=== PATIENT | female | born 1950 | race Caucasian/White ===

== ENCOUNTER → 2016-11-21 | Outpatient (CLI) | payer OTHER ==
[~2016-11-21] MED LIST: ACET-24 PO; ASPEC325 PO; ASPI81TA28 PO; ATOR10TA88 PO; AVP150 PO; CARV3.122 PO; CHOL100010 PO; CIPR1TAB11 PO; CYAN10005 PO; DEXL30CA5 PO; ESCI1TAB9 PO; FRRG PO; GLIM2TAB2 PO; INHALER INH; LEVO88TA3 PO; MISCCAP80 PO; NCYSR50 PO; NXM/40 PO; RXC5 PO; SITA50TA5 PO; SYN100 PO; TRIA75TA PO
[2016-11-21 18:50] LABS: URINE APPEARANCE TURBID (CLEAR); URINE BILIRUBIN NEG (NEG); URINE COLOR DK YELLOW; URINE EPITHELIAL CELL AUTO >30 /lpf (0-5); URINE NITRITE NEG (NEG); URINE PH 5.5 (4.5-7.5); URINE SPECIFIC GRAVITY 1.027 (1.000-1.030); UROBILINOGEN NEG (NEG)
[2016-11-21 19:00] LABS: MANUAL MICROSCOPIC REQUIRED? NO; REVIEW REQ? NO
== END | disposition home or self-care (01) ==
LOC: C.LABSPEC 17:46
PROVIDERS: ATTEND Obstetrics & Gynecology
DX: R39.9 Unspecified symptoms and signs involving the genitourinary system (principal)

== ENCOUNTER → 2016-11-21 | Outpatient (CLI) | payer OTHER | END | disposition home or self-care (01) | LOC: C.PAPS 09:55 | PROVIDERS: ATTEND Obstetrics & Gynecology | DX: Z01.419 Encounter for gynecological examination (general) (routine) without abnormal findings (principal) ==

== ENCOUNTER → 2016-11-25 | Outpatient (CLI) | payer OTHER ==
[2016-11-25 14:44] LABS: URINE APPEARANCE CLEAR (CLEAR); URINE BILIRUBIN NEG (NEG); URINE COLOR YELLOW; URINE EPITHELIAL CELL AUTO >30 /lpf (0-5); URINE NITRITE NEG (NEG); UROBILINOGEN NEG (NEG)
[2016-11-25 14:49] LABS: MANUAL MICROSCOPIC REQUIRED? NO; REVIEW REQ? NO
== END | disposition home or self-care (01) ==
LOC: C.LAB1850 12:37
PROVIDERS: ATTEND Obstetrics & Gynecology
DX: R39.9 Unspecified symptoms and signs involving the genitourinary system (principal)

== ENCOUNTER → 2016-11-30 | Outpatient (CLI) | payer OTHER ==
[~2016-11-30] VITALS: Ht 167.6 cm; Wt 82.5 kg
[2016-11-30 13:43] VITALS: Ht 167.6 cm; Wt 82.5 kg
--- NOTE | 2016-11-30 14:22 | PAT Medication Instructions ---
Service Date Nov 30, 2016. Current Home Medication List Aspirin (Aspirin Ec), 81 MG PO QAM Atorvastatin (Lipitor), 10 MG PO QAM Carvedilol (Coreg), 3.125 MG PO BID Cholecalciferol (Vitamin D), 2,000 INTER.UNIT PO QAM Escitalopram Oxalate (Lexapro), 10 MG PO QPM Esomeprazole Magnesium (Nexium), 40 MG PO BID Irbesartan (Avapro *), 75 MG PO QAM Levothyroxine (Synthroid *), 0.1 MG PO QAM Probiotic Product (Probiotic), 1 CAPSULE PO QAM Sitagliptin-Metformin Hcl (Janumet), 1 TAB PO BID [Inhaler], Unknown Dose INH UD Medication Instructions For Your Scheduled Surgery - Hold the following medications 48 hours prior to surgery: Sitagliptin-Metformin Hcl (Janumet), 1 TAB PO BID - Hold the following medications the morning of surgery: Irbesartan (Avapro *), 75 MG PO QAM Cholecalciferol (Vitamin D), 2,000 INTER.UNIT PO QAM Probiotic Product (Probiotic), 1 CAPSULE PO QAM - Take the following medications the morning of surgery with a sip of water OTHERWISE NOTHING TO EAT OR DRINK AFTER MIDNIGHT: Aspirin (Aspirin Ec), 81 MG PO QAM Atorvastatin (Lipitor), 10 MG PO QAM Carvedilol (Coreg), 3.125 MG PO BID Esomeprazole Magnesium (Nexium), 40 MG PO BID Levothyroxine (Synthroid *), 0.1 MG PO QAM [Inhaler], Unknown Dose INH UD (use if needed; BRING TO HOSPITAL) - Take the following medications as scheduled the night before surgery: Carvedilol (Coreg), 3.125 MG PO BID Esomeprazole Magnesium (Nexium), 40 MG PO BID Escitalopram Oxalate (Lexapro), 10 MG PO QPM [Inhaler], Unknown Dose INH UD If you have any questions please call us at [phone] or [phone] or [phone]
[2016-11-30 14:54] LABS: BASO % 0.2 %; BASO ABS # 0.01 K/uL (0-0.2); COMPLETE YES; EOS % 1.4 %; HEMATOCRIT 34.9 % (37-47); IG% 0.2 %; LYMPH % 29.7 %; LYMPH ABS # 1.93 K/uL (1.2-3.4); MEAN CORPUSCULAR HEMOGLOBIN 28.9 pg (25-34); MEAN CORPUSCULAR HGB CONC 33.2 g/dl (32-36); MEAN PLATELET VOLUME 9.6 fL (7.4-10.4); MONO % 8.5 %; PLATELET COUNT 242 K/uL (130-400); RED BLOOD COUNT 4.01 M/uL (4.2-5.4)
[2016-11-30 15:03] LABS: PROTHROMBIN TIME (PATIENT) 10.8 SECONDS (9.0-12.0)
[2016-11-30 15:11] LABS: BUN/CREATININE RATIO 16.2 (10-20); CALCIUM 8.8 mg/dl (8.5-10.1); CREATININE 0.87 mg/dl (0.60-1.20); POTASSIUM 4.1 mmol/L (3.5-5.1)
--- NOTE | 2016-11-30 15:14 | DIAGNOSTIC IMAGING REPORT ---
CHEST PREADMISSION(PA/LAT) CLINICAL HISTORY: PAT preoperative evaluation COMPARISON STUDY: No previous studies for comparison. FINDINGS: The bones soft tissues and hemidiaphragms are normal. The cardiomediastinal silhouette is normal. The lungs are clear. The pulmonary vasculature is normal. IMPRESSION: Negative chest. Electronically signed by: Ty Munoz M.D. 11/30/2016 3:13 PM Dictated Date/Time: 11/30/2016 3:13 PM
== END | disposition home or self-care (01) ==
LOC: C.LAB 08:00 → EDSTATUS 01-17 09:31
PROVIDERS: ATTEND Orthopaedic Surgery Sports Medicine
DX: Z01.810 Encounter for preprocedural cardiovascular examination (principal); Z01.812 Encounter for preprocedural laboratory examination

== ENCOUNTER → 2017-04-19 | Outpatient (CLI) | payer OTHER ==
[~2017-04-19] MED LIST changes: +ATOR10TA82 PO; -ATOR10TA88 PO; -CIPR1TAB11 PO; -DEXL30CA5 PO; -TRIA75TA PO
[2017-04-19 12:34] LABS: ESTIMATED AVERAGE GLUCOSE 157 mg/dl; HA1C FLAG Normal (Normal)
[2017-04-19 13:01] LABS: RATIO 8.4 mcg/mg (0-30.0)
[2017-04-19 13:13] LABS: BLOOD UREA NITROGEN 14 mg/dl (7-18); CREATININE 0.83 mg/dl (0.60-1.20); GLUCOSE 130 mg/dl (70-99)
[2017-04-19 13:14] LABS: ALT/SGPT 22 U/L (12-78); AST/SGOT 20 U/L (15-37); BUN/CREATININE RATIO 16.3 (10-20); CARBON DIOXIDE 27 mmol/L (21-32); CHLORIDE 106 mmol/L (98-107); CHOLESTEROL 147 mg/dl (0-200); POTASSIUM 4.3 mmol/L (3.5-5.1); SODIUM 141 mmol/L (136-145); TRIGLYCERIDES 113 mg/dl (0-150); VERY LOW DENSITY LIPOPROT CALC 23 mg/dl
[2017-04-19 13:21] LABS: ALB/GLOB RATIO 1.1 (0.9-2); ALKALINE PHOSPHATASE 53 U/L (45-117); CHOLESTEROL/HDL RATIO 2.5; HDL CHOLESTEROL 60 mg/dl; LDL CHOLESTEROL CALCULATED 64 mg/dl; THYROID STIMULATING HORMONE 0.186 uIu/ml (0.300-4.500)
--- NOTE | 2017-05-03 08:30 | CODING QUERY MEDICAL NECESSITY ---
CQSUPPORTING DIAGNOSIS NEEDED A supporting diagnosis is required for the test/procedure performed on this patient in order for us to be reimbursed by the patient's insurance. Please provide a supporting diagnosis for the following test/procedure listed below next to the test name along with your signature. *If there is no additional diagnosis for this patient that would support the following test/procedure please document that below next to the test/procedure. Test(s)/Procedure(s) that require a supporting diagnosis: DOS 04/19/17 VITAMIN D TEST VITAMIN B12 TEST Provider Signature: Date: Thank you Ina Kessler [facility] Information Management Once completed, please kindly fax back to [phone] For questions please call [phone]
== END | disposition home or self-care (01) ==
LOC: C.LABBFT 10:02
PROVIDERS: ATTEND Internal Medicine Endocrinology, Diabetes & Metabolism
DX: E11.9 Type 2 diabetes mellitus without complications (principal); I10 Essential (primary) hypertension; E55.9 Vitamin D deficiency, unspecified; E53.8 Deficiency of other specified B group vitamins

== ENCOUNTER → 2017-06-22 | Outpatient (CLI) | payer OTHER ==
[~2017-06-22] MED LIST changes: -ATOR10TA82 PO; +ATOR10TA88 PO; -MISCCAP80 PO; -SYN100 PO
[2017-06-22 15:21] LABS: THYROID STIMULATING HORMONE 1.85 uIu/ml (0.300-4.500)
--- NOTE | 2017-06-22 15:24 | DIAGNOSTIC IMAGING REPORT ---
ABDOMEN AND PELVIS CT WITH ORAL CONTRAST CT DOSE: 485.07 mGy.cm HISTORY: Lower abdominal pain. TECHNIQUE: Multiaxial CT images of the abdomen and pelvis were performed following the use of oral contrast. A dose lowering technique was utilized adhering to the principles of ALARA. COMPARISON STUDY: Abdomen and pelvis CT 09/21/2007. FINDINGS: Linear densities at the lung bases consistent with scar or atelectasis. Subcentimeter nodular density base of the left lower lobe is not significantly changed. Therefore, this is considered to be benign. No pneumoperitoneum. No pneumatosis. No fractures within the visualized osseous structures. Small to moderate hiatus hernia has increased in size. Status post mesh repair of a midline ventral hernia. No evidence for recurrent ventral hernia. Small bilateral fat-containing inguinal hernias. Cholecystectomy. The unenhanced liver, spleen, adrenal glands, and pancreas are within normal limits. There are few diverticula at the second portion of the duodenum. No renal stones. No hydronephrosis. The bladder, uterus, and adnexa are unremarkable. No bowel wall thickening or obstruction. Colonic diverticulosis. Normal appendix. A 2.8 cm low-density presacral soft tissue lesion. IMPRESSION: 1. No bowel wall thickening or obstruction. 2. Colonic diverticulosis. 3. Normal appendix. 4. Small to moderate hiatus hernia which is increased in size. 5. A 2.8 cm low-density presacral soft tissue lesion. This is likely benign. However, recommend six-month pelvis CT follow-up to ensure stability. Electronically signed by: Zachary Eastman M.D. 06/22/2017 3:22 PM Dictated Date/Time: 06/22/2017 3:13 PM
== END | disposition home or self-care (01) ==
LOC: C.CTS 12:51
PROVIDERS: ATTEND Physician Assistant
DX: R10.9 Unspecified abdominal pain (principal); K57.30 Diverticulosis of large intestine without perforation or abscess without bleeding; R93.5 Abnormal findings on diagnostic imaging of other abdominal regions, including retroperitoneum; E03.9 Hypothyroidism, unspecified

== ENCOUNTER → 2017-07-06 | Outpatient (CLI) | payer OTHER ==
[2017-07-06 13:33] LABS: URINE APPEARANCE CLEAR (CLEAR); URINE BILIRUBIN NEG (NEG); URINE COLOR YELLOW; URINE EPITHELIAL CELL AUTO >30 /lpf (0-5); URINE NITRITE NEG (NEG); URINE SPECIFIC GRAVITY 1.021 (1.000-1.030); UROBILINOGEN NEG (NEG)
[2017-07-06 13:44] LABS: MANUAL MICROSCOPIC REQUIRED? NO; REVIEW REQ? NO
== END | disposition home or self-care (01) ==
LOC: C.LAB 10:47
PROVIDERS: ATTEND Physician Assistant
DX: N39.0 Urinary tract infection, site not specified (principal)

== ENCOUNTER 2017-07-11 09:10 | Inpatient (IN) | payer OTHER ==
[2017-06-01 10:45] VITALS: BMI 28.0
--- NOTE | 2017-06-01 11:19 | PAT Medication Instructions ---
Service Date Jun 01, 2017. Current Home Medication List Aspirin (Aspirin Ec), 81 MG PO QAM Atorvastatin (Lipitor), 10 MG PO QAM Carvedilol (Coreg), 3.125 MG PO BID Cholecalciferol (Vitamin D), 2,000 INTER.UNIT PO QAM Escitalopram Oxalate (Lexapro), 10 MG PO QPM Esomeprazole Magnesium (Nexium), 40 MG PO BID Glimepiride (Glimepiride), 1 TAB PO QAM Irbesartan (Avapro *), 75 MG PO QAM Levothyroxine Sodium (Levothyroxine Sodium), 1 TAB PO QAM Sitagliptin-Metformin Hcl (Janumet), 1 TAB PO BID [Inhaler], Unknown Dose INH UD PRN for ALLERGIES Medication Instructions For Your Scheduled Surgery - Hold the following medications 48 hours prior to surgery: Sitagliptin-Metformin Hcl (Janumet), 1 TAB PO BID - Hold the following medications the morning of surgery: Glimepiride (Glimepiride), 1 TAB PO QAM Irbesartan (Avapro *), 75 MG PO QAM Cholecalciferol (Vitamin D), 2,000 INTER.UNIT PO QAM - Take the following medications the morning of surgery with a sip of water OTHERWISE NOTHING TO EAT OR DRINK AFTER MIDNIGHT: Aspirin (Aspirin Ec), 81 MG PO QAM Atorvastatin (Lipitor), 10 MG PO QAM [Inhaler], Unknown Dose INH UD PRN for ALLERGIES (use if needed; BRING TO HOSPITAL) Carvedilol (Coreg), 3.125 MG PO BID Levothyroxine Sodium (Levothyroxine Sodium), 1 TAB PO QAM Esomeprazole Magnesium (Nexium), 40 MG PO BID - Take the following medications as scheduled the night before surgery: Carvedilol (Coreg), 3.125 MG PO BID Esomeprazole Magnesium (Nexium), 40 MG PO BID Escitalopram Oxalate (Lexapro), 10 MG PO QPM [Inhaler], Unknown Dose INH UD PRN for ALLERGIES If you have any questions please call us at [phone] or [phone] or [phone]
[2017-06-01 11:51] LABS: BASO % 0.2 %; BASO ABS # 0.01 K/uL (0-0.2); COMPLETE YES; EOS % 2.6 %; HEMATOCRIT 33.3 % (37-47); IG% 0.2 %; LYMPH % 26.1 %; LYMPH ABS # 1.33 K/uL (1.2-3.4); MEAN CELL VOLUME 88.3 fL (80-100); MEAN CORPUSCULAR HEMOGLOBIN 29.7 pg (25-34); MEAN CORPUSCULAR HGB CONC 33.6 g/dl (32-36); MEAN PLATELET VOLUME 9.5 fL (7.4-10.4); MONO % 8.8 %; NEUT % 62.1 %; PLATELET COUNT 226 K/uL (130-400); RED BLOOD COUNT 3.77 M/uL (4.2-5.4); WHITE BLOOD COUNT 5.09 K/uL (4.8-10.8)
[2017-06-01 12:00] LABS: CREATININE 0.92 mg/dl (0.60-1.20); PARTIAL THROMBOPLASTIN RATIO 1.1; PROTHROMBIN TIME (PATIENT) 10.7 SECONDS (9.0-12.0)
[2017-06-01 12:01] LABS: CALCIUM 9.1 mg/dl (8.5-10.1); POTASSIUM 4.2 mmol/L (3.5-5.1)
[2017-06-01 12:17] LABS: ESTIMATED AVERAGE GLUCOSE 151 mg/dl; HA1C FLAG Normal (Normal)
--- NOTE | 2017-07-06 12:49 | HISTORY & PHYSICAL EXAMINATION ---
DATE OF ADMISSION: 07/11/2017 CHIEF COMPLAINT: Bilateral knee pain, right side greater than left. HISTORY OF PRESENT ILLNESS: The patient is a 67-year-old female who I had scheduled for her right knee replacement 2 other times in the past but she has canceled for various reasons. Since her last visit, her has and she feels more able to proceed with surgery. She had a long history of bilateral knee pain and discomfort, right side greater than the left. It has been through extensive conservative treatment. Pain has become more debilitating. She has pain pretty much all the time. The more she walks, the more it hurts. She would now like to proceed with knee surgery on the right side. PAST MEDICAL HISTORY: 1. Elevated cholesterol. 2. Hypertension. 3. Diabetes with an A1c of 6.9. 4. Hypothyroidism. 5. Gastroesophageal reflux disease. 6. Hiatal hernia. PAST SURGICAL HISTORY: 1. Herniorrhaphy. 2. Cholecystectomy. 3. Tubal ligation. 4. Tonsillectomy. 5. Breast lump removal. ALLERGIES: SULFA AND NIACIN. CURRENT MEDICINES: Include: 1. Janumet 1000 mg twice a day. 2. Synthroid. 3. Dexilant. 4. Avapro. 5. Coreg. 6. Unspecified cholesterol medicine. SOCIAL HISTORY: A 67-year-old female. She does live by herself. Her and son both recently . She is a retired technical services specialist. FAMILY HISTORY: Significant for diabetes and heart disease. REVIEW OF SYSTEMS: Significant for diabetes. No history of DVT or PE. No bleeding problems. No history of chest pain or shortness of breath. PHYSICAL EXAMINATION: GENERAL: Reveals a healthy, pleasant middle-aged female. She looks to be in pretty good health. HEAD, EYES, EARS, NOSE, AND THROAT EXAMINATION: Benign. NECK: Supple. No lymphadenopathy. LUNGS: Clear to auscultation. HEART: Regular rate and rhythm. ABDOMEN: Soft, nontender, nondistended. EXTREMITY EXAMINATION: Grossly neurovascularly intact except as follows: Examination of the right knee reveals the patient walks and ambulates independently. She had varus alignment to her knee. She is tender over the medial joint line. She does have bony hypertrophy medially. Small knee effusion. Range of motion is 5-125. No instability. X-RAYS: X-rays of the right knee revealed advanced right knee DJD. She has complete loss of the medial joint space. Some osteophytes off the medial femoral condyle and medial tibial plateau. ASSESSMENT: A 67-year-old white female with advanced right knee degenerative joint disease. She had been scheduled for knee replacement in the past several times and would now like to proceed again. PLAN: We will take her to the operating room and do a right total knee replacement. The risks and benefits of this procedure were explained to the patient including but not limited to DVT, PE, , infection, neurological injury, vascular injury, bleeding problem, pain, limited range of motion, stiffness, relieve her symptoms, incomplete relief of symptoms, need for further surgery in the future, fracture, leg length inequality, nerve palsy, persistent pain, etc. bed. The patient understands and desires to proceed. Informed consent was obtained. The patient lives by herself. She is hoping to go to rehab postop. I will see her back 2 weeks postop.
[2017-07-11] VITALS (8 sets, daily range): BP systolic 113–161; BP diastolic 70–89; PULSE 55–66; TEMP 36.4–36.7; O2SAT 92–100; Ht 172.7 cm; Wt 83.5 kg
[~2017-07-11] VITALS: Ht 172.7 cm; Wt 83.5 kg
--- NOTE | 2017-07-11 08:58 | History & Physical Bridge Note ---
H&P Re-Evaluation Bridge Note: I have examined the patient, reviewed the History & Physical and in the interval since the performance of the History & Physical I have noted the following changes of clinical significance: No changes noted
[~2017-07-11 09:10] MED LIST changes: -ACET-24 PO; +ACETAMINOPHEN 500 MG TAB PO SCH; -ASPEC325 PO; +BUPIVACAINE 0.5 % 5 MG/1 ML PF 10ML VIAL ONE; +BUPIVACAINE LIPOSOME 266 MG, BUPIVACAINE/EPINEPHRINE INJ 50 ML, SODIUM CHLORIDE 0.9% PF... INFIL SCH; +CEFAZOLIN 2000 MG/60 ML D5W 60 ML IV SCH; -CYAN10005 PO; +FAMOTIDINE 20 MG TAB PO SCH; -FRRG PO; +GABAPENTIN 300 MG CAP PO SCH; +LACTATED RINGER'S 1000ML 1,000 ML IV SCH; +LACTATED RINGER'S 1000ML 500 ML IV ONE; +LACTATED RINGER'S 1000ML IV SCH; +METOCLOPRAMIDE HCL 10 MG TAB PO SCH; -NCYSR50 PO; +ROPIVACAINE 0.5% 5 MG/ML 30 ML VIAL ONE; -RXC5 PO; +SCOPOLAMINE 1.5 MG TDSY TD SCH; +TRANEXAMIC ACID INJ 1,000 MG in SODIUM CHLORIDE 0.9% 100ML 100 ML IV SCH
[2017-07-11] MEDS ORDERED: MIDAZOLAM HCL 1 MG/ML 2ML VIAL ONE ×3 (09:44→10:20)
[2017-07-11] MEDS ORDERED: FENTANYL CITRATE INJ 50 MCG/1 ML 2 ML VIAL ONE ×2 (09:44→10:21)
[2017-07-11] MEDS ORDERED: CYAN10005 PO (09:47)
[2017-07-11] MEDS ORDERED: EpHEDrine SULFATE INJ 50 MG/ML AMP IV PRN (10:15)
[2017-07-11] MEDS ORDERED: ATROPINE SULFATE 0.1 MG/ML 5ML SYR IV PRN (10:15)
[2017-07-11] MEDS ORDERED: ONDANSETRON INJ 2 MG/ML 2 ML VIAL IV PRN ×2 (10:15→12:45)
[2017-07-11] MEDS ORDERED: HYDROmorphone INJ 2 MG/ML SYR/VIAL IV PRN (10:15)
[2017-07-11] MEDS ORDERED: PHENYLEPHRINE 100MCG/ML 5ML SYR IV PRN (10:15)
[2017-07-11] MEDS ORDERED: PROPOFOL IV EMULSION 10 MG/ML 20 ML VIAL IV ONE (10:20)
[2017-07-11] MEDS ORDERED: BUPIVACAINE LIPOSOME 1/3% 266 MG/20 ML VIAL INFIL ONE (10:20)
[2017-07-11] MEDS ORDERED: BACITRACIN 50000 UNIT VIAL ONE (10:20)
[2017-07-11] MEDS ORDERED: LIDOCAINE HCL 2% 2 ML VIAL (20MG/ML) ONE (10:20)
[2017-07-11] MEDS ORDERED: BUPIVACAINE/EPINEPHRINE 0.25% 1:200,000 30 ML VIAL ONE (10:20)
[2017-07-11] MEDS ORDERED: SODIUM CHLORIDE 0.9% PF 50 ML VIAL ONE (10:20)
[2017-07-11] MEDS ORDERED: GLYCOPYRROLATE INJ 0.2 MG/ML VIAL ONE (12:19)
--- NOTE | 2017-07-11 12:32 | [facility] Post Operative Brief Note ---
Immediate Operative Summary Operative Date Jul 11, 2017. Pre-Operative Diagnosis Advanced Right Knee Degenerative Joint Disease Post-Operative Diagnosis Same as preoperative diagnosis Procedure(s) Performed Right Total Knee Replacement Surgeon Dr. Ferris Personal Development Coach Surgeon(s) Sudarshan Grant PA-C Estimated Blood Loss 50ml Findings Right Knee DJD Fluids (cc crystalloids) 1200 cc Specimens a. right knee bone and tissue Drains None Anesthesia Spinal Complication(s) None Disposition Recovery Room / PACU
[2017-07-11] MEDS ORDERED: MoRPHine SULFATE 2 MG/ML CARP IV PRN (12:45)
[2017-07-11] MEDS ORDERED: ALUMINUM/MAGNESIUM/SIMETH (MAALOX MAX) 30 ML UDC PO PRN (12:45)
[2017-07-11] MEDS ORDERED: BISACODYL 10 MG SUPP PR PRN (12:45)
[2017-07-11] MEDS ORDERED: MAGNESIUM HYDROXIDE SUSP 30 ML UDC PO PRN (12:45)
[2017-07-11] MEDS ORDERED: DEXTROSE 50% 50 ML SYR IV PRN (12:45)
[2017-07-11] MEDS ORDERED: GLUCAGON FOR INJ 1 MG VIAL SQ PRN (12:45)
[2017-07-11] MEDS ORDERED: GLUCOSE 40% GEL 15 GM TUBE PO PRN (12:45)
[2017-07-11] MEDS ORDERED: GLUCOSE 10 TABS/TUBE PO PRN (12:45)
[2017-07-11] MEDS ORDERED: METOCLOPRAMIDE HCL INJ 5 MG/ML 2 ML VIAL IV PRN (12:45)
[2017-07-11] MEDS ORDERED: DiphenhydrAMINE HCL 50 MG/ML VIAL IV PRN (12:45)
[2017-07-11] MEDS ORDERED: ZOLPIDEM TARTRATE 5 MG TAB PO PRN (12:45)
--- NOTE | 2017-07-11 13:17 | OPERATIVE REPORT ---
DATE OF OPERATION: 07/11/2017 PREOPERATIVE DIAGNOSIS: Right knee degenerative joint disease. POSTOPERATIVE DIAGNOSIS: Same. PROCEDURE PERFORMED: Right cemented posterior stabilized total knee arthroplasty. SURGEON: Dr. Jaylon Ferris. TRAVELING ENGINEER: Ramos Grant PA-C. COMPLICATIONS: None. ESTIMATED BLOOD LOSS: 50 mL. FLUID REPLACEMENT: 1200 mL crystalloid fluid replacement. ANESTHESIA: Spinal with adductor canal block. DRAINS: None. SPECIMENS: Right knee sent for pathology. TOURNIQUET TIME: 51 minutes at 300 mmHg. OPERATIVE INDICATIONS: The patient is a 67-year-old female who has had a long history of right knee pain and discomfort. She has been through extensive conservative treatment without adequate relief. She was scheduled for surgery on 2 separate occasions but had to cancel for social issues. She now would like to proceed with a right total knee arthroplasty. OPERATIVE FINDINGS: Operative findings revealed advanced right knee DJD. She had extensive grade 4 changes and eburnation in the medial compartment including both the medial femoral condyle and medial tibial plateau. She had extensive grade 4 changes in the patellofemoral compartment. She had a varus deformity to her knee. OPERATIVE IMPLANTS: Operative implants consisted of: 1. Biomet Vanguard size 62.5 right posterior stabilized femoral component. 2. Biomet size 67 tibial tray. 3. A 10 mm posterior stabilized polyethylene insert. 4. A 31 x 8 all poly patella. OPERATIVE PROCEDURE: The patient taken to the operating room, identified and placed on the operating table in supine position. All contact areas were appropriately padded. IV antibiotics were provided by the anesthesia team. A spinal anesthetic and adductor canal block had been provided in the holding area. Cardenas catheter was placed in sterile fashion. Right thigh tourniquet was then placed and the right lower extremity was then prepped and draped in the usual sterile fashion. The right leg was elevated and exsanguinated with Esmarch and tourniquet was placed at 300 mmHg. An anterior approach to the right knee was then performed through a longitudinal incision centered over the patella. Sharp dissection was carried through the subcutaneous tissues down to the level of the extensor mechanism. A medial parapatellar arthrotomy incision was made. Some subperiosteal dissection was carried out medially. The fat pad was resected from beneath the patellar tendon. The lateral patellofemoral ligament was released. The patella was everted and knee was flexed. The osteophytes were taken off the distal femur. The ACL and PCL were then released from the distal femur and the tibia subluxated anteriorly. The external tibial alignment jig was then placed in the anterior face of the tibia and adjusted 16 mm medially. Proximal tibial cut was made to remove about 2 mm of bone from the most deficient aspect of the medial tibial plateau. Some osteophytes were taken off medial and posteromedially. The tibia was then sized to a size 67. Attention was then drawn to the femur. The distal femur was entered with a sharp drill bit. Intramedullary canal was suctioned. A right 5 degree valgus cutting guide was placed. The distal femoral cutting block was pinned in place. Distal femoral cut was made to take an additional 3 mm of bone off the distal femur. The femur was then sized to a size 62.5. We did downsize this slightly. The AP cutting block was pinned parallel to the epicondylar axis, which was 3 degrees of external rotation. The anterior cut, anterior chamfer, posterior cut, posterior chamfer cuts were made. Box cutting guide was placed and adjusted slightly lateral and the box cut was made. The knee was flexed. The remnants of the medial and lateral menisci were excised. The osteophytes were taken off the posterior aspect of the femur. Trial femoral component was placed. The tibial tray was pinned in maximum external rotation and drill and stem punch were used to create defect in proximal tibia for the tibial tray. The knee was then trialed and a 10 mm insert fit most appropriately. Attention was then drawn to the patella. The patella was cleaned of all soft tissues. Patella thickness measured 22 mm in thickness and was cut down to 13. It was sized to a size 31 patella. Lug holes were drilled for the 31 patella. Lateral osteophyte was removed. Patella button was placed. Knee was taken through range of motion and the patella tracked nicely with no thumbs test. Attention was then drawn toward placement of the permanent components. All trial components were removed. Bone plug was placed in the distal femur to limit blood loss. A double batch of Palacos G cement was mixed. A right size 62.5 posterior stabilized femoral component, size 67 tibial tray, 10 mm posterior stabilized polyethylene insert, and a 31 x 8 all poly patella were then cemented in place. Knee was brought out into full extension until cement hardened. A final cement check was then performed. Pericapsular tissues were injected with a total of 100 mL of a combination of 20 mL of Exparel, 30 mL of normal saline, 50 mL of 0.25% Marcaine with epinephrine. The tourniquet was then let down for final tourniquet time of 51 minutes. The patient did receive 1 gram of tranexamic acid. The wound was once again irrigated. The extensor mechanism was then closed with a combination of #1 PDS suture and #1 Vicryl suture in a [id number] fashion. Extensor mechanism was checked and found to be intact. The subcutaneous tissues were then closed with 2-0 Dexon suture in a buried interrupted fashion. Skin was closed skin thom. Leg was then cleaned and dried and a sterile dressing composed of Xeroform, 4 x 4, sterile cast padding and an Abdoulaye bandage were applied. The patient then transferred to the recovery room in stable condition. The patient tolerated the procedure well with no complications. All needle and sponge counts were correct at the end of the operation. I attest to the content of the Intraoperative Record and any orders documented therein. Any exception s are noted below.
--- NOTE | 2017-07-11 13:32 | DIAGNOSTIC IMAGING REPORT ---
RIGHT KNEE 2 VIEWS History: Right total knee arthroplasty. Degenerative arthritis. Postop. FINDINGS: The patient is status post a right total knee arthroplasty. The hardware is intact. No fracture or dislocation. Skin thom are in place. Lucency overlying the medial femoral condyles likely due to overlapping soft tissue gas. IMPRESSION: Right total knee arthroplasty. No evidence for hardware complication. Electronically signed by: Zachary Eastman M.D. 07/11/2017 1:31 PM Dictated Date/Time: 07/11/2017 1:30 PM
--- NOTE | 2017-07-11 13:50 | Anesthesiology Progress Note ---
Anesthesia Post Op Note Date & Time Jul 11, 2017 at 13:49 Vital Signs Pain Intensity: 0 Vital Signs Past 12 Hours Date Time Temp Pulse Resp B/P (MAP) Pulse Ox O2 Delivery O2 Flow Rate FiO2 07/11/17 13:35 60 13 148/79 95 Nasal Cannula 2 07/11/17 13:25 59 15 133/62 96 Nasal Cannula 2 07/11/17 13:15 62 15 149/65 96 Nasal Cannula 2 07/11/17 13:05 62 12 157/74 98 Nasal Cannula 2 07/11/17 12:55 58 12 157/71 98 Nasal Cannula 2 07/11/17 12:45 58 12 157/73 99 Nasal Cannula 2 07/11/17 12:39 36.2 66 12 133/80 95 Nasal Cannula 2 07/11/17 09:40 36.6 61 18 161/89 100 Room Air Notes Mental Status: alert / awake / arousable, participated in evaluation Pt Amnestic to Procedure: Yes Nausea / Vomiting: adequately controlled Pain: adequately controlled Airway Patency, RR, SpO2: stable & adequate BP & HR: stable & adequate Hydration State: stable & adequate Anesthetic Complications: no major complications apparent
[2017-07-11] MEDS: SODIUM CHLORIDE 0.9% 1000ML 1,000 ML IV SCH ×2 (15:11→22:27)
--- NOTE | 2017-07-11 15:39 | PROGRESS NOTE ---
DATE: 07/11/2017 DATE: 07/11/2017 SUBJECTIVE: A 67-year-old white female postop from a right knee replacement. She is doing well. She cannot feel her feet yet. No pain. No chest pain or shortness of breath. Not feeling dizzy or lightheaded. OBJECTIVE: VITAL SIGNS: Temperature 36.7. Vital signs stable. PHYSICAL EXAMINATION: GENERAL: Reveals a healthy, pleasant middle-aged female. She is sitting up and talking with some friends. She looks pretty comfortable. LUNGS: Clear to auscultation. HEART: Regular rate and rhythm. ABDOMEN: Soft, nontender, nondistended. EXTREMITY EXAMINATION: Grossly neurovascularly intact except as follows: Examination of the right leg reveals the leg to be well aligned. Dressing is clean, dry and intact. She has got brisk refill. Good distal pulse. No significant sensory or motor function yet. X-RAYS: X-rays of the right knee from recovery room are reviewed. It shows a right cemented posterior stabilized total knee arthroplasty. The components looked to be in good position. No signs of problems. ASSESSMENT: A 67-year-old white female postop from a right knee replacement, doing well. Pain is controlled. Spinal is still in effect. PLAN: 1. DVT prophylaxis including thigh-high TEDs, SCDs, and aspirin twice a day. 2. PT/OT. Weightbearing as tolerated. Right total knee protocol. 3. Pain control. Doing well with current pain regimen. Will have to add medicines as her block wears off. 4. IV antibiotics x24 hours. 5. Disposition. She is hoping to be discharged to rehab facility, preferably [facility]. She lives alone and will need assistance for a while with recovery.
[2017-07-11] MEDS: KETOROLAC TROMETHAMINE 15 MG/ML VIAL IV. SCH ×2 (16:03→21:12)
[2017-07-11] MEDS: CHECK SCOPOLAMINE PATCH PLACEMENT SCH ×2 (16:03→23:31)
[2017-07-11] MEDS: FERROUS GLUCONATE 324 MG TAB PO SCH (18:05)
[2017-07-11] MEDS: OXYCODONE HCL IR 5 MG TAB (IMMEDIATE RELEASE) PO PRN ×3 (18:06→23:30)
[2017-07-11] MEDS: ACETAMINOPHEN 500 MG TAB PO SCH (18:06)
[2017-07-11] MEDS: INSULIN HUMAN REGULAR SC SCH ×2 (18:12→21:00)
[2017-07-11] MEDS ORDERED: TRANEXAMIC ACID INJ 1,000 MG in SODIUM CHLORIDE 0.9% 100ML 100 ML IV SCH (18:45)
[2017-07-11] MEDS: CEFAZOLIN IV 2,000 MG in DEXTROSE 5% 50ML 50 ML IV SCH (19:11)
[2017-07-11] MEDS: TAPENTADOL ER 50 MG TABCR PO SCH (21:00)
[2017-07-11] MEDS ORDERED: NON-FORMULARY MEDICATION (Esomeprazole Magnesium (Nexium) 40 MG) PO SCH (21:00)
[2017-07-11] MEDS: DOCUSATE SODIUM 100 MG CAP PO SCH (21:11)
[2017-07-11] MEDS: ATORVASTATIN 10 MG TAB PO SCH (21:11)
[2017-07-11] MEDS: CARVEDILOL 3.125 MG TAB PO SCH (21:11)
[2017-07-11] MEDS: ASPIRIN 325 MG ECTAB PO SCH (21:11)
[2017-07-11] MEDS: ESCITALOPRAM OXALATE 10 MG TAB PO SCH (21:12)
[2017-07-11] MEDS: PANTOprazole SOD 40 MG TAB PO SCH (21:12)
[2017-07-11] MEDS: SENNA 8.6 MG TAB PO SCH (21:12)
[2017-07-12 02:45] VITALS: BP 129/74; PULSE 73; TEMP 36.4; O2SAT 94
[2017-07-12] MEDS: CEFAZOLIN IV 2,000 MG in DEXTROSE 5% 50ML 50 ML IV SCH (04:03)
[2017-07-12] MEDS: KETOROLAC TROMETHAMINE 15 MG/ML VIAL IV. SCH ×4 (04:04→21:47)
[2017-07-12 05:56] LABS: HEMATOCRIT 28.1 % (37-47); MEAN CELL VOLUME 89.8 fL (80-100); MEAN CORPUSCULAR HEMOGLOBIN 28.8 pg (25-34); MEAN PLATELET VOLUME 9.8 fL (7.4-10.4); PLATELET COUNT 189 K/uL (130-400); RED BLOOD COUNT 3.13 M/uL (4.2-5.4); WHITE BLOOD COUNT 8.76 K/uL (4.8-10.8)
[2017-07-12] MEDS: ACETAMINOPHEN 500 MG TAB PO SCH ×3 (05:56→21:23)
[2017-07-12] MEDS: LEVOTHYROXINE 88 MCG TAB PO SCH (05:56)
[2017-07-12] MEDS: SODIUM CHLORIDE 0.9% 1000ML 1,000 ML IV SCH (05:57)
[2017-07-12 06:29] LABS: BUN/CREATININE RATIO 14.1 (10-20); CALCIUM 7.5 mg/dl (8.5-10.1); CREATININE 0.75 mg/dl (0.60-1.20); POTASSIUM 4.2 mmol/L (3.5-5.1)
[2017-07-12 07:28] VITALS: BP 170/99; PULSE 86; TEMP 36.7; O2SAT 94
[2017-07-12] MEDS: CHECK SCOPOLAMINE PATCH PLACEMENT SCH ×3 (07:38→23:39)
[2017-07-12] MEDS: OXYCODONE HCL IR 5 MG TAB (IMMEDIATE RELEASE) PO PRN ×2 (07:48→16:50)
[2017-07-12] MEDS: TAPENTADOL ER 50 MG TABCR PO SCH ×2 (08:59→20:44)
[2017-07-12] MEDS: CYANOCOBALAMIN 500 MCG TAB (VIT B-12) PO SCH (08:59)
[2017-07-12] MEDS: FERROUS GLUCONATE 324 MG TAB PO SCH ×3 (08:59→18:09)
[2017-07-12] MEDS: ASPIRIN 325 MG ECTAB PO SCH ×2 (08:59→21:23)
[2017-07-12] MEDS: GLIMEPIRIDE 2 MG TAB PO SCH (09:00)
[2017-07-12] MEDS: IRBESARTAN 75 MG TAB PO SCH (09:00)
[2017-07-12] MEDS: CHOLECALCIFEROL 1000 INTER.UNIT TAB PO SCH (09:00)
[2017-07-12] MEDS: DOCUSATE SODIUM 100 MG CAP PO SCH ×2 (09:01→21:23)
[2017-07-12] MEDS: PANTOprazole SOD 40 MG TAB PO SCH ×2 (09:01→21:23)
[2017-07-12] MEDS: MULTIVITAMIN TAB PO SCH (09:01)
[2017-07-12] MEDS: CARVEDILOL 3.125 MG TAB PO SCH ×2 (09:01→21:22)
[2017-07-12] MEDS: INSULIN HUMAN REGULAR SC SCH ×4 (09:08→20:44)
[2017-07-12] MEDS ORDERED: ACET-24 PO (09:47)
[2017-07-12] MEDS ORDERED: FRRG PO (09:47)
[2017-07-12] MEDS ORDERED: ASPEC325 PO (09:47)
[2017-07-12] MEDS ORDERED: RXC5 PO (09:47)
[2017-07-12] MEDS ORDERED: NCYSR50 PO (09:47)
--- NOTE | 2017-07-12 09:49 | Discharge Instructions ---
Discharge Instructions Date of Service Jul 12, 2017. Admission Reason for Admission: Right Knee Osteoarthritis, Pain Discharge Discharge Diagnosis / Problem: Right Knee Replacement Discharge Goals Goal(s): Decrease discomfort, Improve function, Increase independence, Improve disease control, Therapeutic intervention Activity Recommendations Activity Level: Assistance Required Therapies: Physical Therapy, Occupational Therapy Weightbearing Status: Right weightbearing . Additional Information Patient informed of condition: Yes Advance Directives: Yes DNR: No Level of Care: Acute Rehab Communicable Disease: No Prognosis: Improving Instructions / Follow-Up Instructions / Follow-Up ACTIVITY RECOMMENDATIONS: Physical Therapy: * You will go to physical therapy three times each week for four to six weeks after your surgery in order to regain your knee range of motion and to retrain your knee to work properly. * It is just as important to make sure you are getting your knee perfectly straight as it is to regain your knee bend. * Taking a pain pill an hour before therapy can help you have a more productive and comfortable therapy session. Home Exercise: * You were shown a series of exercises (heel props, heel slides, etc.) in the hospital. Do these exercises three to four times each day including the exercises you were shown in physical therapy. Walking: * Get up and walk several times each day. For the first four weeks, try not to stand or walk for more than one hour at a time. If you do stand or walk for more than one hour, you will not hurt anything, but your knee and leg will likely swell. * As you feel comfortable, you may change from the walker or crutches to a cane and then to independent walking. MEDICATIONS: New Medicine: * You will likely be taking one or more of these medications: 1. Nucynta - A long-acting pain medication. Take 1 tablet twice a day for the first ten days to decrease your baseline level of pain. 2. Oxycodone - A quick and shorter-acting pain medication. Take one to two tablets every four to six hours to lessen your pain. 3. Iron Sulfate - Take three times each day for the month after surgery to help you replace the blood lost during surgery. 4. Aspirin - Thins your blood to lessen the chance of forming a blood clot. * The most common side effects of pain medicine and iron are nausea and constipation. If nausea or constipation is too much of a problem or if you have any questions about your new medicines or doses, call [facility] at [phone]. We will try to help you manage these issues. VERY IMPORTANT TO READ AND REVIEW" Pain: * The immediate post-operative period after knee replacement surgery is often quite painful. * You are given a prescription for pain medicine. You should take it, as directed, when you need it, especially before physical therapy and before going to bed. Pain that interferes with sleep is very common and can last several months. * You will likely need pain medicine for the first four to six weeks. It will not stop all of the pain. The pain will lessen and as you feel better, you may change to milder pain medicine such as Tylenol. * The most common side effects of pain medicine are nausea and constipation, so don't take more than you need. SPECIAL CARE INSTRUCTIONS: TEDs/Elastic Stockings: * The white elastic stockings help limit swelling and prevent blood clots from forming in your legs. The more you wear them, the more they work. * Wear them for six weeks after knee replacement surgery and four weeks after partial knee replacement. Prevention of Infection: * Take antibiotics one hour before any dental cleaning, dental work, urological procedure, gastrointestinal procedure or any invasive surgery in order to prevent your new joint from getting infected. * You may get the antibiotics from the doctor performing the procedure or you may call our office at before and we will call in a prescription to the pharmacy of your choice. Things to Watch For: * Drainage from the incision site that occurs more than one week after your surgery. * Severely increased knee/leg pain or swelling. * Increased redness at the incision site. * Fever above 102 degrees Fahrenheit. * Unusual chest pain or shortness of breath. * Unusual pain or burning with urination. Call [facility] at with any of the above problems or if you have any questions about your medicines or recovery. FOLLOW UP VISIT: Make an appointment to see your doctor for approximately two weeks after surgery for a progress check and staple removal by calling the office at . Current Hospital Diet Patient's current hospital diet: Diabetes Type 2 Diet Discharge Diet Recommended Diet: Diabetes Type 2 Diet Procedures Procedures Performed: Right Total Knee Replacement Pending Studies Studies pending at discharge: no Laboratory Results Hemoglobin A1c Test 06/01/17 11:20 Range/Units Estimated Average Glucose 151 mg/dl Hemoglobin A1c 6.9 H 4.5-5.6 % Lipid Panel Test 04/19/17 10:06 Range/Units Triglycerides Level 113 0-150 mg/dl Cholesterol Level 147 0-200 mg/dl HDL Cholesterol 60 mg/dl Cholesterol/HDL Ratio 2.5 LDL Cholesterol, Calculated 64 mg/dl Medical Emergencies . Who to Call and When: Medical Emergencies: If at any time you feel your situation is an emergency, please call 911 immediately. . Non-Emergent Contact Non-Emergency issues call your: Surgeon . . "Provider Documentation" section prepared by Jaylon Ferris. . Core Measure Problem Core Measures: None
--- NOTE | 2017-07-12 10:01 | PROGRESS NOTE ---
DATE: 07/12/2017 SUBJECTIVE: 67-year-old white female postop day 1 from right knee replacement. She is doing pretty well. She is sitting up in her bedside chair. Quite a bit more pain this morning. No chest pain or shortness of breath. Not feeling dizzy or lightheaded. OBJECTIVE: VITAL SIGNS: Temperature 36.7. Vital signs stable. Blood pressure is slightly elevated at 170/90. PHYSICAL EXAMINATION: GENERAL: Reveals a pleasant elderly female. She is sitting up in her bedside chair and looks reasonably comfortable. Clearly hurting more than she was yesterday. LUNGS: Clear to auscultation. HEART: Regular rate and rhythm. ABDOMEN: Soft, nontender, nondistended. EXTREMITIES: Grossly neurovascularly intact except as follows. Examination of the right lower extremity reveals the dressing to be clean, dry and intact. She can dorsiflex and plantarflex her foot appropriately. She is neurologically intact. LABORATORY DATA: Hemoglobin is 9.0. Hematocrit 28.1. Electrolytes are stable. ASSESSMENT: 67-year-old white female postop day 1 from right knee replacement, doing pretty well. Having quite a bit more pain than she was. She is hypertensive this morning, likely related to her pain. She recently just got some pain medicine and will see how this comes along. She is anemic, but without symptoms. PLAN: 1. DVT prophylaxis including thigh-high TEDs, SCDs, and aspirin twice a day. 2. PT/OT. Weightbearing as tolerated. Right total knee protocol. 3. Pain control. We are trying to get her pain under a little bit better control, which I think will help her high blood pressure as well. 4. Anemia. Will continue iron supplementation. Will follow H&H. Transfuse only if symptomatic or hemoglobin less than 8. 5. Disposition: She is hoping to be discharged to rehab for a brief rehab stay once stable.
--- NOTE | 2017-07-12 10:15 | Anesthesiology Progress Note ---
Anesthesia Post Op Note Date & Time Jul 12, 2017 at 10:14 Vital Signs Pain Intensity: 9.0 Vital Signs Past 12 Hours Date Time Temp Pulse Resp B/P (MAP) Pulse Ox O2 Delivery O2 Flow Rate FiO2 07/12/17 07:45 Room Air 07/12/17 07:28 36.7 86 18 170/99 (122) 94 Nasal Cannula 2.0 07/12/17 02:45 36.4 73 18 129/74 (92) 94 Nasal Cannula 2.0 07/11/17 23:13 Nasal Cannula 2.0 07/11/17 22:53 36.4 59 18 128/70 (89) 96 Nasal Cannula 2.0 Notes Mental Status: alert / awake / arousable, participated in evaluation Pt Amnestic to Procedure: Yes Nausea / Vomiting: adequately controlled Pain: adequately controlled, improving with treatment Airway Patency, RR, SpO2: stable & adequate BP & HR: stable & adequate Hydration State: stable & adequate Neuraxial Anesthesia: was administered, sensory block resolved Anesthetic Complications: no major complications apparent
[2017-07-12 11:20] VITALS: BP 130/73
[2017-07-12 15:54] VITALS: BP 127/72; PULSE 76; TEMP 36.9; O2SAT 92
[2017-07-12 21:19] VITALS: BP 112/66; PULSE 71
[2017-07-12] MEDS: ESCITALOPRAM OXALATE 10 MG TAB PO SCH (22:11)
[2017-07-12] MEDS: SENNA 8.6 MG TAB PO SCH (22:11)
[2017-07-12] MEDS: ATORVASTATIN 10 MG TAB PO SCH (22:12)
[2017-07-12 22:44] VITALS: BP 136/84; PULSE 78; TEMP 36.4; O2SAT 93
[2017-07-13] MEDS: OXYCODONE HCL IR 5 MG TAB (IMMEDIATE RELEASE) PO PRN ×3 (02:09→14:27)
[2017-07-13] MEDS: KETOROLAC TROMETHAMINE 15 MG/ML VIAL IV. SCH ×2 (04:45→11:00)
[2017-07-13 04:51] LABS: HEMATOCRIT 23.6 % (37-47)
[2017-07-13] MEDS: LEVOTHYROXINE 88 MCG TAB PO SCH (05:29)
[2017-07-13] MEDS: ACETAMINOPHEN 500 MG TAB PO SCH ×2 (05:29→14:26)
--- NOTE | 2017-07-13 07:49 | PROGRESS NOTE ---
DATE: 07/13/2017 SUBJECTIVE: 67-year-old white female postop day 2 from right knee replacement. She is doing well. Pain is better this morning. Denies any chest pain or shortness of breath. Not feeling dizzy or lightheaded. OBJECTIVE: VITAL SIGNS: Temperature is 36.4. Vital signs stable. PHYSICAL EXAMINATION: GENERAL: Reveals a pleasant middle-aged female lying in bed, looks pretty comfortable. She is awake, alert and oriented. LUNGS: Clear to auscultation. HEART: Regular rate and rhythm. ABDOMEN: Soft, nontender, nondistended. EXTREMITIES: Grossly neurovascularly intact except as follows: Examination of the right leg reveals the dressing to be clean, dry and intact. There is no significant drainage on the dressing. Her calf is soft and supple. Some moderate swelling. She is neurologically intact. LABORATORY DATA: Hemoglobin 7.8. Hematocrit 23.6. ASSESSMENT: 67-year-old white female postop day 2 from right knee replacement, doing pretty well. She does have some underlying chronic anemia and she is anemic, but without symptoms. Really looks good. Vital signs are stable and we are going to hold on any transfusion and just continue iron supplementation. Pain is better controlled today. PLAN: 1. DVT prophylaxis including thigh-high TEDs, SCDs, and aspirin twice a day. 2. PT/OT. Weightbearing as tolerated. Right total knee protocol. 3. Pain control. Doing well with current pain regimen; seems to be improved today. 4. Anemia. Will continue iron supplementation. No need for transfusion at this time. 5. Disposition: She is planning to be discharged to [facility] if accepted.
[2017-07-13 07:55] VITALS: BP 128/76; PULSE 64; TEMP 36.4; O2SAT 91
[2017-07-13] MEDS: TAPENTADOL ER 50 MG TABCR PO SCH (09:00)
[2017-07-13] MEDS: FERROUS GLUCONATE 324 MG TAB PO SCH ×2 (09:17→13:35)
[2017-07-13] MEDS: CYANOCOBALAMIN 500 MCG TAB (VIT B-12) PO SCH (09:17)
[2017-07-13] MEDS: IRBESARTAN 75 MG TAB PO SCH (09:18)
[2017-07-13] MEDS: GLIMEPIRIDE 2 MG TAB PO SCH (09:18)
[2017-07-13] MEDS: CHOLECALCIFEROL 1000 INTER.UNIT TAB PO SCH (09:19)
[2017-07-13] MEDS: ASPIRIN 325 MG ECTAB PO SCH (09:19)
[2017-07-13] MEDS: MULTIVITAMIN TAB PO SCH (09:19)
[2017-07-13] MEDS: CARVEDILOL 3.125 MG TAB PO SCH (09:19)
[2017-07-13] MEDS: DOCUSATE SODIUM 100 MG CAP PO SCH (09:20)
[2017-07-13] MEDS: PANTOprazole SOD 40 MG TAB PO SCH (09:20)
[2017-07-13] MEDS: INSULIN HUMAN REGULAR SC SCH ×2 (09:21→13:32)
[2017-07-13 14:16] VITALS: BP 128/76; PULSE 64; TEMP 36.4; O2SAT 91
--- NOTE | 2017-07-20 00:06 | DISCHARGE SUMMARY ---
ADMITTING PHYSICIAN AND SURGEON: Dr. Ferris. ADMITTING DIAGNOSIS: Right knee degenerative joint disease. SURGERY PERFORMED: Right total knee arthroplasty. SECONDARY DIAGNOSES: Include elevated cholesterol, hypertension, diabetes, hypothyroidism, gastroesophageal reflux disease, hiatal hernia. CONSULTS: None obtained. HISTORY AND PHYSICAL EXAMINATION: Well documented in the patient's chart. HOSPITAL COURSE: The patient was admitted on 07/11/2017 underwent total knee arthroplasty, tolerated the procedure well. There were no complications. She was transferred to the PACU postoperatively and later to the orthopedic floor for further care. She was given Ancef for antibiotic prophylaxis, GARETH stockings, SCDs and aspirin for DVT prophylaxis. Hemoglobin, hematocrit and vital signs were monitored during her hospital stay and remained stable. She did develop some anemia postoperatively with the hemoglobin down to 7.8 and did not require any blood transfusions. There were no complications during her hospital stay. By postoperative day 2, she was tolerating a general diet. Pain was controlled with oral pain medicine. She was participating in physical therapy, had no signs or symptoms of deep vein thrombosis. On postop day 2, she was discharged to a rehab facility. She was given printed discharge instructions including new prescriptions for extra strength Tylenol, aspirin 325 mg b.i.d., an iron supplement, oxycodone and Nucynta. She should continue her home medications with the exception of her home dose of aspirin which was changed. Continue physical therapy, weightbearing as tolerated, GARETH stockings. Follow up in 10-12 days or sooner if there are any problems or concerns.
== END 2017-07-13 14:40 | DRG 470 ==
LOC: C.ACU 09:10 → C.3E 10:00 → ENRESERV 13:58
PROVIDERS: ADMIT Orthopaedic Surgery Sports Medicine; ATTEND Orthopaedic Surgery Sports Medicine
PROC: 0SRC0J9 Replacement of Right Knee Joint with Synthetic Substitute, Cemented, Open Approach (ICD-10-PCS; principal; 2017-07-11 11:00)
DX: M17.11 Unilateral primary osteoarthritis, right knee (principal); D64.9 Anemia, unspecified; I10 Essential (primary) hypertension; E11.9 Type 2 diabetes mellitus without complications; E03.9 Hypothyroidism, unspecified; K21.9 Gastro-esophageal reflux disease without esophagitis; E78.00 Pure hypercholesterolemia, unspecified; Z79.899 Other long term (current) drug therapy; Z79.84 Long term (current) use of oral hypoglycemic drugs; Z83.3 Family history of diabetes mellitus; Z82.49 Family history of ischemic heart disease and other diseases of the circulatory system

== ENCOUNTER → 2017-09-22 | Outpatient (CLI) | payer OTHER ==
[~2017-09-22] MED LIST changes: +ACET-24 PO; -ACETAMINOPHEN 500 MG TAB PO SCH; +ASPEC325 PO; -ASPI81TA28 PO; +ATOR10TA82 PO; -ATOR10TA88 PO; -BUPIVACAINE 0.5 % 5 MG/1 ML PF 10ML VIAL ONE; -BUPIVACAINE LIPOSOME 266 MG, BUPIVACAINE/EPINEPHRINE INJ 50 ML, SODIUM CHLORIDE 0.9% PF... INFIL SCH; -CEFAZOLIN 2000 MG/60 ML D5W 60 ML IV SCH; +CYAN10005 PO; -FAMOTIDINE 20 MG TAB PO SCH; +FRRG PO; -GABAPENTIN 300 MG CAP PO SCH; -LACTATED RINGER'S 1000ML 1,000 ML IV SCH; -LACTATED RINGER'S 1000ML 500 ML IV ONE; -LACTATED RINGER'S 1000ML IV SCH; -METOCLOPRAMIDE HCL 10 MG TAB PO SCH; +NCYSR50 PO; -ROPIVACAINE 0.5% 5 MG/ML 30 ML VIAL ONE; +RXC5 PO; -SCOPOLAMINE 1.5 MG TDSY TD SCH; -TRANEXAMIC ACID INJ 1,000 MG in SODIUM CHLORIDE 0.9% 100ML 100 ML IV SCH
--- NOTE | 2017-09-25 07:49 | MAMMOGRAPHY REPORT ---
BILATERAL DIGITAL SCREENING MAMMOGRAM TOMOSYNTHESIS WITH CAD: 09/22/2017 CLINICAL HISTORY: Routine screening. Patient has no complaints. TECHNIQUE: Breast tomosynthesis in addition to standard 2D mammography was performed. Current study was also evaluated with a Computer Aided Detection (CAD) system. COMPARISON: Comparison is made to exams dated: 07/20/2015 mammogram, 01/09/2015 mammogram, 06/27/2014 u ltrasound, 06/27/2014 mammogram, 12/20/2010 mammogram, and 02/03/2012 mammogram - [facility] enter. BREAST COMPOSITION: The tissue of both breasts is heterogeneously dense, which may obscure small mas ses. FINDINGS: A linear scar marker overlies the inferior left breast. There are scattered bilateral leigha gn rim calcifications and a stable grouping of punctate microcalcifications and associated asymmetry in the medial left breast that appears similar dating back to at least 05/12/2009, therefore likely b enign. No new suspicious mass, architectural distortion or cluster of microcalcifications is seen. IMPRESSION: ACR BI-RADS CATEGORY 1: NEGATIVE There is no mammographic evidence of malignancy. A 1 year screening mammogram is recommended. The pa tient will receive written notification of the results. Approximately 10% of breast cancers are not detected with mammography. A negative mammographic report should not delay biopsy if a clinically suggestive mass is present. Bertha Carrillo M.D. ay/:09/23/2017 09:27:42 [employer] Inspector: Ciarra SCHAFER)(Carlos), [facility] letter sent: Normal 1/2 BI-RADS Code: ACR BI-RADS Category 1: Negative
== END | disposition home or self-care (01) ==
LOC: C.MAMM 09:53
PROVIDERS: ATTEND Obstetrics & Gynecology
DX: Z12.31 Encounter for screening mammogram for malignant neoplasm of breast (principal)

== ENCOUNTER → 2017-10-18 | Outpatient (CLI) | payer OTHER ==
[2017-10-18 12:22] LABS: URINE APPEARANCE CLEAR (CLEAR); URINE BILIRUBIN NEG (NEG); URINE COLOR YELLOW; URINE NITRITE POS (NEG); URINE SPECIFIC GRAVITY 1.014 (1.000-1.030); UROBILINOGEN NEG (NEG)
[2017-10-18 12:29] LABS: MANUAL MICROSCOPIC REQUIRED? NO; REVIEW REQ? NO
[2017-10-18 12:35] LABS: ALKALINE PHOSPHATASE 62 U/L (45-117); ALT/SGPT 15 U/L (12-78); AST/SGOT 13 U/L (15-37); BLOOD UREA NITROGEN 13 mg/dl (7-18); BUN/CREATININE RATIO 15.8 (10-20); CALCIUM 9.2 mg/dl (8.5-10.1); CARBON DIOXIDE 28 mmol/L (21-32); CHLORIDE 107 mmol/L (98-107); CREATININE 0.84 mg/dl (0.60-1.20); GLUCOSE 125 mg/dl (70-99); POTASSIUM 4.2 mmol/L (3.5-5.1); SODIUM 141 mmol/L (136-145)
[2017-10-18 12:36] LABS: CREATININE RANDOM URINE 77.1 mg/dl
[2017-10-18 12:42] LABS: ESTIMATED AVERAGE GLUCOSE 148 mg/dl; HA1C FLAG Normal (Normal)
[2017-10-18 12:47] LABS: RATIO 34.5 mcg/mg (0-30.0)
== END | disposition home or self-care (01) ==
LOC: C.LAB 09:31
PROVIDERS: ATTEND Physician Assistant
DX: E11.65 Type 2 diabetes mellitus with hyperglycemia (principal); R35.0 Frequency of micturition; E53.8 Deficiency of other specified B group vitamins

== ENCOUNTER → 2017-11-28 | Outpatient (CLI) | payer OTHER | END | disposition home or self-care (01) | LOC: C.MAMM 13:59 | PROVIDERS: ATTEND Internal Medicine Endocrinology, Diabetes & Metabolism | DX: M81.0 Age-related osteoporosis without current pathological fracture (principal) ==

== ENCOUNTER → 2018-02-08 | Outpatient (CLI) | payer OTHER | END | disposition home or self-care (01) | LOC: C.LABSPEC 17:23 | PROVIDERS: ATTEND Obstetrics & Gynecology | DX: N39.46 Mixed incontinence (principal) ==